=== PATIENT | male | born 1990 | race Caucasian/White ===

== ENCOUNTER 2022-06-05 17:01 | Emergency (ER) | payer OTHER, SELFPAY ==
[2022-06-05 17:02] VITALS: BP 133/82; PULSE 113; RESP 22; TEMP 36.2; O2SAT 92; BMI 40.7
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
[2022-06-05] MEDS: HYDROmorphone 0.5 MG/0.5 ML SYRINGE IV ×2 (17:15→17:50)
[2022-06-05] MEDS: Diphth,Pertuss(Acell),Tet Vac 0.5 ML Vial IM (17:16)
[2022-06-05] MEDS: 0.9% Normal Saline 1,000 ML 1000 ML IV (17:18)
[2022-06-05 17:19] VITALS: BP 133/79
[2022-06-05 17:25] LABS: Allen Test Positive; Base Excess -1 mmol/L (-2 to +2); Bicarbonate 23.7 mmol/L (22-26); Blood Gas Specimen Type ART; FI02 100; O2 Delivery Device NRB; PO2 119 mmHG (75-100); SITE R Radial; SO2 99 % (95-99); Total Carbon Dioxide 25 mmol/L
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
[2022-06-05 17:35] LABS: Absolute Lymphocyte Count 4.12 X10^3/uL (0.83-4.51); Absolute Neutrophil Count 13.8 X10^3/uL (2.0-7.7); Basophil# 0.06 X10^3/uL; Basophil% 0.3 % (0-1); Eosinophils% 0.5 % (0-5); Hematocrit 44.6 % (40-54); Hemoglobin 15.3 g/dL (13.0-16.5); Lymphocyte # 4.12 X10^3/ul (0.83-4.51); Lymphocyte % 21.1 % (19-41); Mean Corp Hgb Conc 34.3 g/dL (32-36); Mean Corpuscular Hgb 30.4 pg (27.0-32.0); Mean Corpuscular Volume 88.5 fL (80-94); Mean Platelet Vol. 9.3 fl (6.2-12.0); Monocyte# 1.22 X10^3/uL; Monocyte% 6.3 % (0-10); NRBC Flagged by Analyzer 0 % (0-5); Neutrophil # 13.82 X10^3/uL (2.7-7.7); Platelet Count 398 K/mm3 (150-450); RBC Distribution Width CV 12.3 % (11.6-14.6); RBC Distribution Width SD 39.8 fl (35.1-43.9); Red Blood Count 5.04 M/mm3 (4.6-6.2); White Blood Count 19.5 K/mm3 (4.4-11.0)
[2022-06-05] MEDS: Cefazolin 1 GM/50 ML BAG IV (17:35)
[2022-06-05 17:42] LABS: International Normalized Ratio 1.2; Prothrombin Time (Protime)PT. 14.5 SECONDS (11.7-14.9)
[2022-06-05 17:43] LABS: Partial Thromboplast Time 29.6 Seconds (24.1-36.2)
[2022-06-05 17:51] LABS: ALB/GLOB Ratio 1.1 RATIO (0.9-2.4); AST(SGOT) 50 U/L (15-37); Alanine Aminotransfer ALT/SGPT 42 U/L (16-61); Alkaline Phosphatase 70 U/L (45-117); Anion Gap 9 (5-15); BUN 9 mg/dL (7-18); BUN/Creat Ratio 8.2 RATIO (10-20); Chloride 102 mmol/L (98-107); EST Glomerular Filtration Rate 82 mL/min (>60); Est Glom Filt Rate - Afr Amer 99 mL/min (>60); Estimated Creatinine Clearance 111.05 ml/min; Globulin 3.8 g/dL (2.2-4.2); Glucose 154 mg/dL (74-106); Lipase 254 U/L (73-393); Potassium 3.3 mmol/L (3.5-5.1); Protein, Total 7.8 g/dL (6.4-8.2); Sodium Level 138 mmol/L (136-145)
[2022-06-05 17:53] VITALS: BP 126/57; PULSE 103; RESP 18; O2SAT 100
[2022-06-05] MEDS: fentaNYL 100 MCG/2 ML Ampul IV (17:55)
--- NOTE | 2022-06-05 17:55 | RAD_ITS ---
INDICATION: chest tube placement EXAMINATION/TECHNIQUE: X-RAY - XR Chest 1 View COMPARISON: Previous chest CT of 5:36 PM, 06/05/2022 FINDINGS: LIFE-SUPPORT AND LINES: 1. Chest tube is noted projecting with the tip over the LEFT apex. 2. Recent CT examination shows that the chest tube does not gain access to the LEFT hemithorax. It is uncertain as to whether the chest tube has been repositioned in the interval. 3. No apical pneumothorax, previous CT documented an anterior pneumothorax which may be visually occult on spine radiograph. 4. Small amount of subcutaneous emphysema along the LEFT chest wall 5. Backboard is in place. HEART AND VESSELS: Cardiac silhouette is unchanged. LUNGS AND PLEURAL SPACES: Minimal atelectasis, no consolidation noted. No pulmonary mass is noted. MEDIASTINUM AND HILAR REGIONS: Normal for supine portable chest radiograph. BONY ELEMENTS: No acute bony changes noted. RAD/Chest 1 View IMPRESSION: 1. LEFT chest tube projects across the LEFT mid thorax with the tip projecting overlying the LEFT apex. The previous CT examination of 5:36 PM 06/05/2022 in comparison to current chest radiograph of 5:50 PM demonstrated that the LEFT chest tube did not gain access to the LEFT hemithorax. If there has not been repositioning, the chest tube likely is projecting external to the hemithorax. 2. No apical pneumothorax noted. Chest CT documented an anterior pneumothorax. 3. Minimal atelectasis, no consolidation or effusion. 4. Minimal subcutaneous emphysema along the LEFT chest wall. 5. No bony fractures noted. Electronically Signed: Nima Wall MD at 18:47 EST ,
--- NOTE | 2022-06-05 18:11 | ED.RN ---
ED TO ED REPORT CALLED TO DERRICK AT [facility] AT THIS TIME.
[2022-06-05 18:31] LABS: Alcohol, Blood (Medical)-Serum < 3.0 mg/dL
== END 2022-06-05 18:02 | disposition short-term general hospital (02) ==
PROVIDERS: Emergency Medicine; Emergency Provider Emergency Medicine; Visit Provider Emergency Medicine
DX: J93.0 Spontaneous tension pneumothorax (principal); J96.01 Acute respiratory failure with hypoxia; S27.321A Contusion of lung, unilateral, initial encounter; S09.90XA Unspecified injury of head, initial encounter; S82.201A Unspecified fracture of shaft of right tibia, initial encounter for closed fracture; S82.401A Unspecified fracture of shaft of right fibula, initial encounter for closed fracture; E66.9 Obesity, unspecified; V43.92XA Unspecified car occupant injured in collision with other type car in traffic accident, initial encounter
CPT/HCPCS: 32551; 36600; 51702; 70450; 71045; 71260; 72125; 74177; 80053; 82077; 82803; 83690; 85025; 85610; 85730; 96365; 96372; 96375; 96376; 99285; Q9967; A4216

== ENCOUNTER 2022-06-20 11:30 | Inpatient (IN) | payer OTHER, SELFPAY ==
[2022-06-20 11:54] VITALS: BMI 33.7
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
[2022-06-20 12:00] VITALS: BP 126/89; PULSE 113; RESP 17; TEMP 36.2; O2SAT 99
--- NOTE | 2022-06-20 15:18 | CASEMGMT ---
Social Work Met with patient. Introduced self and role. Educated to [facility] CM insurance and continued stay review process. Offered to assist with FMLA through employer. Pt explained employer is very generous and working with pt during leave. SW offered supportive visits and emotional support for pt and family. SW to revisit pt after pt is settled in unit to speak further. Pt expressed appreciation. Pt's goal is to DC home with family. Will Team on Mondays, to be present. Bibi Urbano, MAURICIO ARCOSW
--- NOTE | 2022-06-20 15:38 | CHAPLAIN ---
Type of Pastoral Visit _x__ Initial Visit ___ Follow-up Visit ___ On-call Visit ___ General Patient Visit ___ Spiritual Assessment ___ Family Conference ___ Bereavement ___ Rapid Response ___ Code Blue ___ Other (describe below) Pastoral Care Referral From _x__ Patient ___ Family ___ Nurse ___ Physician _x__ Lathe Machinist ___ Copra Sampler ___ Other (describe below) Sacrament/Intervention _x__ Active listening ___ Anointing ___ Congregation ___ Bereavement ___ Communion _x__ Margie exploration ___ _x__ Life review _x__ Prayer ___ Reconciliation ___ Sacrament of Sick _x__ Supportive presence ___ Wedding ___ Other (describe below) Pastoral Comments SW notified this practical nurse that this would be a suggested visit for support; patient did give approval for visit; patient was welcoming and explained that he is coping better than I would have guessed about myself; patient states that family is his greatest source of support and help; pt presents self as motivated to get better and recover; pt does not have any needs at this point per his answer to that question; pt is not connected with any yarsani or margie community but has been loosely in the past; pt states that he recognizes that he is blessed to be alive and has a chance at life
[2022-06-20 16:47] VITALS: O2SAT 99
[2022-06-20 19:45] VITALS: BP 125/81; PULSE 76; RESP 17; TEMP 36.2; O2SAT 98
[2022-06-20] MEDS: Acetaminophen 500 MG Tablet 1000 MG PO (21:23)
[2022-06-20] MEDS: traZODone 50 MG Tablet PO (21:23)
[2022-06-20 22:00] VITALS: PULSE 89; RESP 16; O2SAT 98
--- NOTE | 2022-06-21 01:38 | NURSING ---
PVR #1, 500mL output with BS of 0mL urine remaining. PVR #2, 700mL output with BS of 0mL urine remaining. Pt uses urinal and is continent.
[2022-06-21] MEDS: Acetaminophen 500 MG Tablet 1000 MG PO ×3 (05:22→21:33)
[2022-06-21 05:58] LABS: Absolute Lymphocyte Count 4.34 X10^3/uL (0.83-4.51); Absolute Neutrophil Count 10.3 X10^3/uL (2.0-7.7); Basophil# 0.13 X10^3/uL; Basophil% 0.8 % (0-1); Eosinophil# 0.44 X10^3/uL; Eosinophils% 2.7 % (0-5); Hematocrit 39.5 % (40-54); Hemoglobin 13.1 g/dL (13.0-16.5); Lymphocyte # 4.34 X10^3/ul (0.83-4.51); Lymphocyte % 26.1 % (19-41); Mean Corp Hgb Conc 33.2 g/dL (32-36); Mean Corpuscular Hgb 30.4 pg (27.0-32.0); Mean Corpuscular Volume 91.6 fL (80-94); Mean Platelet Vol. 8.5 fl (6.2-12.0); Monocyte# 1.29 X10^3/uL; Monocyte% 7.8 % (0-10); NRBC Flagged by Analyzer 0 % (0-5); Neutrophil # 10.32 X10^3/uL (2.7-7.7); Neutrophil % 62.1 % (47-70); Platelet Count 545 K/mm3 (150-450); RBC Distribution Width CV 13.4 % (11.6-14.6); RBC Distribution Width SD 44.9 fl (35.1-43.9); Red Blood Count 4.31 M/mm3 (4.6-6.2); White Blood Count 16.6 K/mm3 (4.4-11.0)
[2022-06-21 06:48] LABS: ALB/GLOB Ratio 0.8 RATIO (0.9-2.4); AST(SGOT) 16 U/L (15-37); Alanine Aminotransfer ALT/SGPT 46 U/L (16-61); Alkaline Phosphatase 121 U/L (45-117); Anion Gap 9 (5-15); BUN 14 mg/dL (7-18); BUN/Creat Ratio 17.3 RATIO (10-20); Calcium,Total 9.4 mg/dL (8.5-10.1); Chloride 102 mmol/L (98-107); Creatinine, Serum 0.81 mg/dL (0.70-1.30); EST Glomerular Filtration Rate 117 mL/min (>60); Est Glom Filt Rate - Afr Amer 141 mL/min (>60); Estimated Creatinine Clearance 163.47 ml/min; Glucose 107 mg/dL (74-106); Magnesium 2.2 mg/dL (1.6-2.6); Phosphorus 4.1 mg/dL (2.5-4.9); Sodium Level 135 mmol/L (136-145)
[2022-06-21 07:29] VITALS: BP 126/88; PULSE 100; RESP 16; TEMP 36.3; O2SAT 100
[2022-06-21] MEDS: Pantoprazole Sodium 40 MG Tablet PO (08:28)
[2022-06-21] MEDS: Enoxaparin 40 MG/0.4 ML Syringe SC (08:28)
[2022-06-21 10:30] VITALS: O2SAT 97
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
[2022-06-21] MEDS: oxyCODONE 5 MG Tablet PO (19:51)
[2022-06-21 20:03] VITALS: BP 129/79; PULSE 108; RESP 16; TEMP 36.6; O2SAT 97
[2022-06-21] MEDS: traZODone 50 MG Tablet PO (21:33)
[2022-06-22] MEDS: Acetaminophen 500 MG Tablet 1000 MG PO ×3 (05:35→21:55)
[2022-06-22 08:23] VITALS: BP 139/83; PULSE 97; RESP 16; TEMP 36.4; O2SAT 97
[2022-06-22] MEDS: Enoxaparin 40 MG/0.4 ML Syringe SC (08:24)
[2022-06-22] MEDS: Pantoprazole Sodium 40 MG Tablet PO (08:24)
[2022-06-22] MEDS: oxyCODONE 5 MG Tablet PO ×3 (08:37→21:55)
--- NOTE | 2022-06-22 09:36 | NURSING ---
picked up PT and transported to appointments at 0930
--- NOTE | 2022-06-22 12:51 | CASEMGMT ---
Social Work Pt off unit for appt. Will attempt visit tomorrow. Bibi Urbano MSW PROFESSOR OF ENVIRONMENTAL STUDIES
[2022-06-22 17:30] VITALS: O2SAT 95
[2022-06-22 21:50] VITALS: BP 122/68; PULSE 102; RESP 18; TEMP 36.7; O2SAT 96
[2022-06-22] MEDS: traZODone 50 MG Tablet PO (21:55)
[2022-06-23 06:00] VITALS: BMI 31.9
[2022-06-23] MEDS: Acetaminophen 500 MG Tablet 1000 MG PO ×3 (06:17→22:13)
[2022-06-23 07:14] VITALS: BP 127/77; PULSE 96; RESP 16; TEMP 36.1; O2SAT 97
[2022-06-23 07:22] VITALS: O2SAT 96
[2022-06-23] MEDS: oxyCODONE 5 MG Tablet PO ×3 (07:46→22:12)
[2022-06-23] MEDS: Pantoprazole Sodium 40 MG Tablet PO (07:46)
[2022-06-23] MEDS: Enoxaparin 40 MG/0.4 ML Syringe SC (07:46)
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
[2022-06-23 20:48] VITALS: BP 131/90; PULSE 105; RESP 16; TEMP 37.2; O2SAT 96
[2022-06-23 20:50] VITALS: O2SAT 96
[2022-06-23] MEDS: traZODone 50 MG Tablet PO (22:13)
[2022-06-24] MEDS: Acetaminophen 500 MG Tablet 1000 MG PO ×3 (05:07→21:30)
[2022-06-24] MEDS: oxyCODONE 5 MG Tablet PO ×2 (07:58→21:30)
[2022-06-24 08:17] VITALS: BP 135/86; PULSE 89; RESP 17; TEMP 36.7; O2SAT 98
[2022-06-24] MEDS: Pantoprazole Sodium 40 MG Tablet PO (10:25)
[2022-06-24] MEDS: Enoxaparin 40 MG/0.4 ML Syringe SC (10:25)
[2022-06-24 21:41] VITALS: BP 128/85; PULSE 106; RESP 16; TEMP 36.6; O2SAT 97
[2022-06-24] MEDS: traZODone 100 MG Tablet PO (21:45)
[2022-06-24 22:00] VITALS: PULSE 106; RESP 16; O2SAT 97
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
[2022-06-25] MEDS: Acetaminophen 500 MG Tablet 1000 MG PO ×3 (06:07→21:25)
[2022-06-25 08:29] VITALS: BP 119/65; PULSE 101; RESP 18; TEMP 36.6; O2SAT 97
[2022-06-25] MEDS: Enoxaparin 40 MG/0.4 ML Syringe SC (09:20)
[2022-06-25] MEDS: Pantoprazole Sodium 40 MG Tablet PO (09:20)
--- NOTE | 2022-06-25 15:00 | NURSING ---
Patient encouraged to drink more fluids and he agreed. Incision to abdomen assessed for redness or drainage and slight redness noted and incision scabbed. RLE wound still has a dark scab and no active drainage seen. Some redness surrounding and is tender to touch. Patient and state that the surgeon told them that area will become necrotic. Will monitor.
[2022-06-25 19:16] VITALS: BP 140/85; PULSE 104; RESP 16; TEMP 36.7; O2SAT 98
[2022-06-25 21:10] VITALS: PULSE 93
[2022-06-25] MEDS: traZODone 100 MG Tablet PO (21:25)
[2022-06-25 22:00] VITALS: PULSE 93; RESP 16; O2SAT 98
[2022-06-26 05:35] LABS: Absolute Lymphocyte Count 3.12 X10^3/uL (0.83-4.51); Absolute Neutrophil Count 5.6 X10^3/uL (2.0-7.7); Basophil# 0.08 X10^3/uL; Basophil% 0.8 % (0-1); Eosinophil# 0.53 X10^3/uL; Eosinophils% 5.2 % (0-5); Hemoglobin 11.4 g/dL (13.0-16.5); Lymphocyte # 3.12 X10^3/ul (0.83-4.51); Lymphocyte % 30.8 % (19-41); Mean Corp Hgb Conc 32.6 g/dL (32-36); Mean Corpuscular Hgb 30.8 pg (27.0-32.0); Mean Corpuscular Volume 94.6 fL (80-94); Mean Platelet Vol. 8.5 fl (6.2-12.0); Monocyte# 0.72 X10^3/uL; Monocyte% 7.1 % (0-10); NRBC Flagged by Analyzer 0 % (0-5); Neutrophil # 5.64 X10^3/uL (2.7-7.7); Neutrophil % 55.7 % (47-70); Platelet Count 439 K/mm3 (150-450); RBC Distribution Width CV 13.6 % (11.6-14.6); RBC Distribution Width SD 47.2 fl (35.1-43.9); White Blood Count 10.1 K/mm3 (4.4-11.0)
[2022-06-26 05:55] LABS: Anion Gap 7 (5-15); BUN 9 mg/dL (7-18); BUN/Creat Ratio 12.7 RATIO (10-20); CRP 6.88 mg/L (0.0-3.0); Calcium,Total 9.3 mg/dL (8.5-10.1); Chloride 106 mmol/L (98-107); Creatinine, Serum 0.71 mg/dL (0.70-1.30); EST Glomerular Filtration Rate 136 mL/min (>60); Est Glom Filt Rate - Afr Amer 164 mL/min (>60); Glucose 105 mg/dL (74-106); Sodium Level 142 mmol/L (136-145)
[2022-06-26 06:00] VITALS: BMI 32.9
[2022-06-26 06:02] LABS: Erythrocyte Sedimentation Rate 29 mm/hr (0-20)
[2022-06-26] MEDS: Acetaminophen 500 MG Tablet 1000 MG PO ×3 (06:36→21:24)
[2022-06-26 07:33] VITALS: BP 138/87; PULSE 97; RESP 16; TEMP 36.4; O2SAT 97
[2022-06-26] MEDS: oxyCODONE 5 MG Tablet PO ×3 (08:30→21:24)
[2022-06-26] MEDS: Enoxaparin 40 MG/0.4 ML Syringe SC (08:30)
[2022-06-26] MEDS: Pantoprazole Sodium 40 MG Tablet PO (08:30)
[2022-06-26 10:00] VITALS: PULSE 100
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
[2022-06-26] MEDS: Amox/Clavulanate 875 MG Tablet PO (18:26)
[2022-06-26 19:30] VITALS: BP 127/82; PULSE 100; RESP 16; TEMP 36.8; O2SAT 97
[2022-06-26] MEDS: traZODone 100 MG Tablet PO (21:24)
[2022-06-26 22:00] VITALS: PULSE 100; RESP 16; O2SAT 97
[2022-06-27] MEDS: Acetaminophen 500 MG Tablet 1000 MG PO ×3 (05:54→22:02)
[2022-06-27 06:00] VITALS: BMI 33.1
[2022-06-27] MEDS: Senna/Docusate Sodium 1 Tablet 2 TABLET PO ×2 (08:24→22:03)
[2022-06-27] MEDS: Amox/Clavulanate 875 MG Tablet PO ×2 (08:24→17:27)
[2022-06-27] MEDS: Pantoprazole Sodium 40 MG Tablet PO (08:25)
[2022-06-27] MEDS: oxyCODONE 5 MG Tablet PO ×2 (08:27→22:02)
[2022-06-27 09:08] VITALS: BP 121/68; PULSE 89; RESP 16; TEMP 36.8; O2SAT 98
[2022-06-27 09:10] VITALS: PULSE 89; RESP 16; O2SAT 98
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
[2022-06-27 19:59] VITALS: BP 121/82; PULSE 98; RESP 16; TEMP 36.7; O2SAT 97
[2022-06-27 20:00] VITALS: O2SAT 97
[2022-06-27] MEDS: traZODone 100 MG Tablet PO (22:02)
[2022-06-28] MEDS: Acetaminophen 500 MG Tablet 1000 MG PO ×3 (05:13→22:19)
[2022-06-28 05:49] VITALS: BMI 33.3
[2022-06-28 07:36] VITALS: BP 112/71; PULSE 91; RESP 15; TEMP 36.5; O2SAT 95
[2022-06-28] MEDS: Amox/Clavulanate 875 MG Tablet PO ×2 (08:37→15:52)
[2022-06-28] MEDS: Pantoprazole Sodium 40 MG Tablet PO (08:37)
[2022-06-28] MEDS: Senna/Docusate Sodium 1 Tablet 2 TABLET PO ×2 (08:38→22:19)
[2022-06-28] MEDS: Enoxaparin 40 MG/0.4 ML Syringe SC (08:40)
[2022-06-28] MEDS: oxyCODONE 5 MG Tablet PO ×2 (11:12→22:18)
[2022-06-28 19:19] VITALS: BP 122/75; PULSE 105; RESP 15; TEMP 36.4; O2SAT 95
[2022-06-28 21:45] VITALS: O2SAT 97
[2022-06-28] MEDS: traZODone 100 MG Tablet PO (22:19)
[2022-06-29 06:00] VITALS: BMI 33.0
[2022-06-29] MEDS: Acetaminophen 500 MG Tablet 1000 MG PO ×3 (06:19→21:05)
[2022-06-29 07:34] VITALS: BP 108/69; PULSE 97; RESP 16; TEMP 36.8; O2SAT 96
[2022-06-29] MEDS: Enoxaparin 40 MG/0.4 ML Syringe SC (08:19)
[2022-06-29] MEDS: Pantoprazole Sodium 40 MG Tablet PO (08:19)
[2022-06-29] MEDS: Amox/Clavulanate 875 MG Tablet PO ×2 (08:19→17:05)
[2022-06-29] MEDS: Senna/Docusate Sodium 1 Tablet 2 TABLET PO (08:24)
[2022-06-29] MEDS: oxyCODONE 5 MG Tablet PO ×2 (08:25→21:05)
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
[2022-06-29 19:31] VITALS: BP 135/80; PULSE 102; RESP 14; TEMP 37; O2SAT 98
[2022-06-29] MEDS: traZODone 100 MG Tablet PO (21:06)
[2022-06-29 22:00] VITALS: PULSE 83; RESP 16; O2SAT 98
[2022-06-30] MEDS: Acetaminophen 500 MG Tablet 1000 MG PO (05:52)
[2022-06-30 07:26] VITALS: BP 138/87; PULSE 83; RESP 16; TEMP 36.6; O2SAT 96
[2022-06-30] MEDS: Pantoprazole Sodium 40 MG Tablet PO (08:55)
[2022-06-30] MEDS: Amox/Clavulanate 875 MG Tablet PO (08:55)
[2022-06-30] MEDS: Enoxaparin 40 MG/0.4 ML Syringe SC (08:56)
[2022-06-30 10:15] VITALS: BMI 33.0
[2022-06-30 14:12] VITALS: BP 138/87; PULSE 83; RESP 16; TEMP 36.6; O2SAT 96
--- NOTE | 2022-06-30 14:13 | NURSING ---
discharged home with .discharge instructions, medications and appointments reviewed with pt and . denies questions or concerns
== END 2022-06-30 14:15 | disposition home or self-care (01) | DRG 560 ==
PROVIDERS: Admitting Provider Internal Medicine; Visit Provider Internal Medicine
DX: S22.42XD Multiple fractures of ribs, left side, subsequent encounter for fracture with routine healing (principal); L03.311 Cellulitis of abdominal wall; J38.4 Edema of larynx; S00-T88 Injury, poisoning and certain other consequences of external causes; S06.9X9D Unspecified intracranial injury with loss of consciousness of unspecified duration, subsequent encounter; S27.322D Contusion of lung, bilateral, subsequent encounter; S27.0XXD Traumatic pneumothorax, subsequent encounter; T81.49XD Infection following a procedure, other surgical site, subsequent encounter; R00.0 Tachycardia, unspecified; G47.00 Insomnia, unspecified; S82.201E Unspecified fracture of shaft of right tibia, subsequent encounter for open fracture type I or II with routine healing; V43.52XD Car driver injured in collision with other type car in traffic accident, subsequent encounter; S82.401E Unspecified fracture of shaft of right fibula, subsequent encounter for open fracture type I or II with routine healing; S12.120D Other displaced dens fracture, subsequent encounter for fracture with routine healing; S12.500D Unspecified displaced fracture of sixth cervical vertebra, subsequent encounter for fracture with routine healing; S12.600D Unspecified displaced fracture of seventh cervical vertebra, subsequent encounter for fracture with routine healing; Z90.49 Acquired absence of other specified parts of digestive tract; R20.2 Paresthesia of skin
CPT/HCPCS: 36415; 80048; 80053; 83735; 84100; 85025; 85652; 86140; 94668; 97110; 97112; 97116; 97162; 97166; 97530; 97535; 97802; 99252; G0463

== ENCOUNTER 2022-08-24 15:30 | Outpatient (RCR) | payer OTHER, SELFPAY ==
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
== END 2022-08-24 19:00 | disposition home or self-care (01) ==
LOC: PT 15:30
PROVIDERS: Referring Provider Internal Medicine; Visit Provider Internal Medicine
DX: S82.401D Unspecified fracture of shaft of right fibula, subsequent encounter for closed fracture with routine healing (principal); S82.201D Unspecified fracture of shaft of right tibia, subsequent encounter for closed fracture with routine healing; S12.500D Unspecified displaced fracture of sixth cervical vertebra, subsequent encounter for fracture with routine healing; S12.600D Unspecified displaced fracture of seventh cervical vertebra, subsequent encounter for fracture with routine healing; S22.49XD Multiple fractures of ribs, unspecified side, subsequent encounter for fracture with routine healing
CPT/HCPCS: 97110; 97163; 97164; 97166; 97530

== ENCOUNTER → 2022-09-18 | Outpatient (CLI) | payer OTHER, SELFPAY | END | disposition home or self-care (01) | LOC: SL 11:03 | PROVIDERS: PCP Family Medicine; Referring Provider Family Medicine; Visit Provider Family Medicine | DX: G47.30 Sleep apnea, unspecified (principal) | CPT/HCPCS: 95806 ==